=== PATIENT | male | born 1980 | race African-American/Black ===

== ENCOUNTER → 2016-02-27 | Outpatient (REF) ==
[~2016-02-27] MED LIST: CRUTCHES; NAPROSYN500 MG PO; NO HOME MEDICATIONS; NORCO 325 MG-51 TAB PO
== END ==
LOC: WSOH 13:05 → WSPT 14:00
DX: Z02.1 Encounter for pre-employment examination (principal)

== ENCOUNTER 2016-04-12 09:32 | Emergency (ER) | payer BC ==
[~2016-04-12] VITALS: Ht 200.7 cm; Wt 90.9 kg
[~2016-04-12 09:32] MED LIST changes: -CRUTCHES
[2016-04-12 09:35] VITALS: BP 150/96; TEMP 98.8
[2016-04-12] MEDS ORDERED: NORCO 325 MG-51 TAB PO (11:04)
[2016-04-12] MEDS ORDERED: CRUTCHES (11:23)
[2016-04-12 11:28] VITALS: PULSE 76
== END 2016-04-12 11:30 | disposition home or self-care (01) ==
LOC: COL.ER 09:32
DX: S92.325A Nondisplaced fracture of second metatarsal bone, left foot, initial encounter for closed fracture (principal); W22.8XXA Striking against or struck by other objects, initial encounter

== ENCOUNTER 2016-07-29 23:11 | Emergency (ER) | payer BC ==
[~2016-07-29] VITALS: Ht 200.7 cm; Wt 90.9 kg
[~2016-07-29 23:11] MED LIST changes: +CRUTCHES
[2016-07-29 23:13] VITALS: BP 144/92; TEMP 97.8
[2016-07-30 00:05] VITALS: PULSE 74
== END 2016-07-30 00:07 | disposition home or self-care (01) ==
LOC: COL.ER 23:11
DX: M25.572 Pain in left ankle and joints of left foot (principal); G89.29 Other chronic pain

== ENCOUNTER → 2016-09-16 | Outpatient (CLI) | payer SELFPAY | LOC: COL.RAD 14:27 | DX: M19.072 Primary osteoarthritis, left ankle and foot (principal) | CPT/HCPCS: J3301; Q9967 ==